=== PATIENT | male | born 1970 | race Caucasian/White ===

== ENCOUNTER 2021-08-13 13:51 | Emergency (ER) | payer SELFPAY ==
[2021-08-13] MEDS ORDERED: IBUPROFEN600 MG PO (15:58)
== END 2021-08-13 16:14 | disposition home or self-care (01) ==
LOC: ER1 13:51
DX: S43.005A Unspecified dislocation of left shoulder joint, initial encounter (principal); Z88.5 Allergy status to narcotic agent
CPT/HCPCS: 23650; 73030; 96372; 99283; J1885